=== PATIENT | female | born 1960 | race Caucasian/White ===

== ENCOUNTER → 2016-06-17 | Outpatient (CLI) | payer BC ==
[~2016-06-17] MED LIST: CALCTAB5 PO; CLR10 PO; MAGN400T6 PO; OMEG10007 PO; SPIR25TA PO; VITAMIN E PO; [UNRECOGNIZED DRUG - OTHER] PO; [UNRECOGNIZED DRUG - OTHER] PO; vitamin d PO
--- NOTE | 2016-06-17 17:04 | DIAGNOSTIC IMAGING REPORT ---
LEFT TOE(S) MIN 2 VIEWS CLINICAL HISTORY: TOE INJURY trauma COMPARISON: None. DISCUSSION: The bones and joint spaces appear intact. There is no evidence of fracture, dislocation or bony disease. Mild soft tissue edema IMPRESSION: Mild soft tissue edema. No acute bony abnormality. Electronically signed by: Madhu Perez M.D. 06/17/2016 5:03 PM Dictated Date/Time: 06/17/2016 5:03 PM
== END | disposition home or self-care (01) ==
LOC: C.RAD1850 16:38
PROVIDERS: ATTEND Family Medicine
DX: S99.929A Unspecified injury of unspecified foot, initial encounter (principal); X58.XXXA Exposure to other specified factors, initial encounter

== ENCOUNTER → 2016-12-26 | Outpatient (CLI) | payer BC | END | disposition home or self-care (01) | LOC: C.PAPS 10:24 | PROVIDERS: ATTEND Obstetrics & Gynecology | DX: Z01.419 Encounter for gynecological examination (general) (routine) without abnormal findings (principal) ==

== ENCOUNTER → 2016-12-28 | Outpatient (CLI) | payer BC ==
--- NOTE | 2016-12-28 15:28 | MAMMOGRAPHY REPORT ---
BILATERAL DIGITAL SCREENING MAMMOGRAM TOMOSYNTHESIS WITH CAD: 12/28/2016 CLINICAL HISTORY: Routine screening. Patient has no complaints. TECHNIQUE: Breast tomosynthesis in addition to standard 2D mammography was performed. Current study was also evaluated with a Computer Aided Detection (CAD) system. COMPARISON: Comparison is made to exams dated: 12/28/2015 mammogram, 12/24/2014 mammogram, 12/23/2013 m ammogram, 12/19/2012 mammogram, and 12/19/2011 mammogram - [facility]. BREAST COMPOSITION: There are scattered areas of fibroglandular density in both breasts. FINDINGS: There is a 5 mm nodular asymmetry in the middle one third of the left breast, along the po sterior nipple line on the MLO view, that is increasingly conspicuous comparing to prior 2-D mammogra ms. It is equivocal for mass in the tomosynthesis images. Nevertheless, additional spot compression tomosynthesis views and possible ultrasound are recommended. There is stable asymmetry in the anterior subareolar right breast. No other suspicious mass, architec tural distortion or cluster of microcalcifications is seen. IMPRESSION: ACR BI-RADS CATEGORY 0: INCOMPLETE EVALUATION: NEED ADDITIONAL IMAGING EVALUATION The 5 mm nodular asymmetry in the left breast needs additional evaluation. The patient will be called to schedule an appointment. Approximately 10% of breast cancers are not detected with mammography. A negative mammographic report should not delay biopsy if a clinically suggestive mass is present. Chloe Cuello M.D. ay/:12/28/2016 13:44:55 Vice President Of Software Engineering: Dyana ACUÑA(R)(M), [facility] letter sent: Addl Imaging 0 BI-RADS Code: ACR BI-RADS Category 0: Incomplete Evaluation: Need Additional Imaging Evaluation
== END | disposition home or self-care (01) ==
LOC: C.MAMM 11:08
PROVIDERS: ATTEND Obstetrics & Gynecology
DX: Z12.31 Encounter for screening mammogram for malignant neoplasm of breast (principal); N64.9 Disorder of breast, unspecified

== ENCOUNTER → 2017-01-03 | Outpatient (CLI) | payer BC ==
--- NOTE | 2017-01-03 12:20 | MAMMOGRAPHY REPORT ---
UNILATERAL LEFT DIGITAL DIAGNOSTIC MAMMOGRAM TOMOSYNTHESIS AND TARGETED LEFT ULTRASOUND: 01/03/2017 CLINICAL HISTORY: 56-year-old woman called back from screening mammography for a 5 mm nodular asymmet ry in the left breast. TECHNIQUE: Spot compression left CC and MLO 2-D and tomosynthesis images were obtained. COMPARISON: Comparison is made to exams dated: 12/28/2016 mammogram, 12/28/2015 mammogram, 12/24/2014 m ammogram, 12/31/2013 ultrasound, 12/31/2013 mammogram, and 12/23/2013 mammogram - [facility]. BREAST COMPOSITION: There are scattered areas of fibroglandular density in the left breast. FINDINGS: The spot compression MLO view of the left breast demonstrates partial effacement of the 5 m m nodular asymmetry in the middle one third of the breast along the posterior nipple line. No corres ponding abnormality is identified on the 2-D or tomosynthesis spot compression left CC views. No foc al area of architectural distortion or suspicious calcifications are seen. Targeted ultrasound was performed in the left breast from the 2:00 to 4:00, retroareolar and 8:00 thr ough 10:00 axes. A morphologically normal lymph node is seen in the 3:00 left breast, 9 cm from the nipple, measuring 6 mm. No other discrete solid or cystic mass is identified. IMPRESSION: ACR-BI-RADS CATEGORY 3: PROBABLY BENIGN, TARGETED ULTRASOUND ACR-BI-RADS CATEGORY 3: PRO BABLY BENIGN There is partial effacement of the 5 mm nodular asymmetry in the middle one third of the left breast, along the posterior nipple line on the MLO view, and no suspicious sonographic correlate identified. No definite persistent mass on the corresponding tomosynthesis images. Although this most likely r epresents normal overlapping fibroglandular tissue, a short interval follow-up left diagnostic tomosy nthesis mammogram and possible ultrasound is recommend to ensure stability in 6 months. These results and recommendations were discussed with the patient at the time of the exam. Approximately 10% of breast cancers are not detected with mammography. A negative mammographic report should not delay biopsy if a clinically suggestive mass is present. Chloe Cuello M.D. ay/:01/03/2017 09:05:13 Dyer And Washer: Dyana ACUÑA(R)(M), [facility] letter sent: Follow Up Recommended 3 BI-RADS Code: ACR-BI-RADS Category 3: Probably Benign Ultrasound BI-RADS: ACR-BI-RADS Category 3: Pr obably Benign
== END | disposition home or self-care (01) ==
LOC: C.MAMM 08:22
PROVIDERS: ATTEND Obstetrics & Gynecology
DX: N64.89 Other specified disorders of breast (principal)

== ENCOUNTER → 2017-07-05 | Outpatient (CLI) | payer OTHER ==
--- NOTE | 2017-07-05 15:22 | MAMMOGRAPHY REPORT ---
UNILATERAL LEFT DIGITAL DIAGNOSTIC MAMMOGRAM TOMOSYNTHESIS WITH CAD: 07/05/2017 CLINICAL HISTORY: Short interval follow-up of left breast asymmetry. TECHNIQUE: Breast tomosynthesis in addition to standard 2D mammography was performed. Current study was also evaluated with a Computer Aided Detection (CAD) system. Left CC and MLO 2D and tomosynthesi s images were obtained. COMPARISON: Comparison is made to exams dated: 01/03/2017 ultrasound, 01/03/2017 mammogram, 12/28/2016 mammogram, 12/28/2015 mammogram, 12/24/2014 mammogram, and 12/31/2013 ultrasound - [facility]. BREAST COMPOSITION: There are scattered areas of fibroglandular density in the left breast. FINDINGS: The previously described asymmetry seen within the left breast on the MLO view along the po sterior nipple line is less prominent on the current exam, and has the appearance of normal fibroglan dular tissue on the tomosynthesis images. The asymmetry is benign and compatible with normal fibrogl andular tissue. The remainder of the left breast is stable compared to prior exams, without suspicio us masses, calcifications, or areas of architectural distortion noted. IMPRESSION: ACR BI-RADS CATEGORY 2: BENIGN The left breast asymmetry is less prominent on the current exam, and is benign and compatible with no rmal fibroglandular tissue. There is no mammographic evidence of malignancy. Return to annual mammog av screening schedule is recommended, due December 2017. The patient has been verbally notified of the results. Approximately 10% of breast cancers are not detected with mammography. A negative mammographic report should not delay biopsy if a clinically suggestive mass is present. Lucia Cook M.D. ah/:07/05/2017 11:02:30 Welding Tester: Dyana ACUÑA(Shine)(M), [facility] letter sent: Normal 1/2 BI-RADS Code: ACR BI-RADS Category 2: Benign
== END | disposition home or self-care (01) ==
LOC: C.MAMM 10:39
PROVIDERS: ATTEND Obstetrics & Gynecology
DX: R92.8 Other abnormal and inconclusive findings on diagnostic imaging of breast (principal)